=== PATIENT | female | born 1950 | race African-American/Black ===

== ENCOUNTER 2018-11-23 11:24 | Inpatient (IN) ==
[2018-11-23 12:05] LABS: Basophils # 0.1 10*3/uL (0.0-0.2); Basophils % 0.2 % (0.0-0.8); Hematocrit 30.2 VOL% (35.7-47.0); Hemoglobin 8.8 GM/DL (12.0-16.0); Immature Granulocytes % 1.1 %; Immature Granulocytes Absolute 0.23 #; Lymphocytes # 2.8 10*3/uL (1.4-4.0); Lymphocytes % 13.4 % (21.3-54.2); Mean Corpuscular HGB Conc 29.1 GM/DL (32-36); Mean Corpuscular Volume 85.1 FL (87-102); Mean Platelet Volume 10.6 FL (9.6-12.0); Monocytes % 2.7 % (1.7-12.7); NRBC # 0.02 10*3/uL; Neutrophils % 82.6 % (38.7-73.9); Platelet Count 261 T/CUMM (130-400); Red Blood Count 3.55 MC/CUMM (3.8-5.5); Red Cell Distribution Width 17.1 % (9.3-17.3); White Blood Count 21.2 T/CUMM (4-12)
[2018-11-23] MEDS ORDERED: PANTOPRAZOLE 40 MG VIAL IV STA (12:09)
[2018-11-23] MEDS ORDERED: SODIUM CHLORIDE 0.9% 1,000 ML IV STA ×2 (12:09→13:35)
[2018-11-23] MEDS ORDERED: ONDANSETRON 4 MG/2 ML VIAL IV STA (12:09)
[2018-11-23 12:22] LABS: Hypochromasia 1+; Lymphocytes 15 % (20-55); Nucleated Red Blood Cells 1 (0-5); Platelet Estimate Adequate; Segmented Neutrophils 84 % (50-85); Total Cells Counted 100
[2018-11-23 12:29] LABS: Alanine Aminotransferase 21 U/L (13-56); Albumin 3.4 G/DL (3.4-5.0); Alkaline Phosphatase 88 U/L (45-117); Aspartate Amino Transferase 31 U/L (0-37); Blood Urea Nitrogen 17 MG/DL (7-18); Calcium 8.7 MG/DL (8.5-10.1); Glucose 92 MG/DL (74-106); Osmolality,Calculated 280.4 MOS/KG (273-304); Total Protein 6.9 G/DL (6.4-8.3)
[2018-11-23] MEDS ORDERED: ETOMIDATE 20 MG/10 ML VIAL IV ONE ×2 (13:16→13:30)
[2018-11-23] MEDS ORDERED: ROCURONIUM 100 MG/10 ML VIAL IV ONE ×2 (13:17→13:31)
[2018-11-23] MEDS ORDERED: AMIODARONE 450 MG/9 ML VIAL IV ONE (13:22)
[2018-11-23] MEDS ORDERED: ENOXAPARIN 40 MG/0.4 ML SYRINGE SUBCUT SCH (13:30)
[2018-11-23] MEDS ORDERED: ONDANSETRON 4 MG/2 ML VIAL IV PRN (13:30)
[2018-11-23] MEDS ORDERED: PROMETHAZINE 25 MG/1 ML VIAL IM PRN (13:30)
[2018-11-23] MEDS ORDERED: ALBUTEROL 2.5 MG/3 ML NEB RESP TX PRN (13:30)
[2018-11-23] MEDS ORDERED: AMIODARONE INJ 450 MG in DEXTROSE 5% 241 ML IV SCH (13:32)
[2018-11-23 13:44] LABS: ABG Base Excess -17.7 MMOL/L (-2.5-2.5); ABG Oxygen Saturation 96.4 % (95-100); ABG PCO2 38.7 MM HG (35-48); ABG TCO2 11.2 MMOL/L (23-27)
[2018-11-23 13:46] LABS: ABG PH 7.076 (7.35-7.45)
[2018-11-23 14:50] LABS: INR 1.3; PT Patient Result 13.7 SECS (9.6-12.2)
[2018-11-23] MEDS ORDERED: NOREPINEPHRINE 8 MG in SODIUM CHLORIDE 0.9% 242 ML IV PRN (15:08)
[2018-11-23] MEDS ORDERED: NOREPINEPHRINE 4 MG/4 ML VIAL IV ONE ×2 (15:10→22:04)
[2018-11-23] MEDS: AMIODARONE INJ 450 MG in DEXTROSE 5% 241 ML IV SCH ×2 (15:30→20:00)
[2018-11-23] MEDS ORDERED: AMIODARONE INJ 150 MG in DEXTROSE 5% 100 ML IV ONE (15:30)
[2018-11-23 15:49] LABS: Apearance,Urine CLOUDY (Clear); Bacteria,Urine Many /HPF (Few); Bilirubin,Urine Negative (Negative); Blood, Urine Small mg/dL (Negative); Glucose,Urine (UA) 50 mg/dL (Negative); Granular Casts,Urine 5 /LPF (0-1); Ketones,Urine Negative (Negative); Mucus,Urine Occasional /LPF (Occasional); Nitrite,Urine Negative (Negative); Protein,Urine >=500 MG/DL; RBC,Urine 8 /HPF (0-4); Squamous Epithelial Cell,Urine Occasional /HPF (0-10); Transitional Epi Cells,Urine Occasional /HPF (<1); Urine Color Yellow (Yellow); Urine Specific Gravity 1.018 (1.001-1.035); WBC,Urine 27 /HPF (0-6)
[2018-11-23] MEDS ORDERED: MAGNESIUM SULF RIDER 4 GM in PREMIX 1 EACH IV PRN (15:59)
[2018-11-23] MEDS ORDERED: POTASSIUM CHLORIDE RIDER 10 MEQ in PREMIX 1 EACH IV PRN (15:59)
[2018-11-23] MEDS ORDERED: MAGNESIUM SULF RIDER 2 GM in PREMIX 1 EACH IV PRN (15:59)
[2018-11-23] MEDS ORDERED: ENOXAPARIN 80 MG/0.8 ML SYRINGE SUBCUT SCH (16:00)
[2018-11-23] MEDS ORDERED: LEVOFLOXACIN INJ 750 MG in PREMIX 1 EACH IV SCH (16:00)
[2018-11-23] MEDS ORDERED: SODIUM BICARBONATE 50 MEQ/50 ML VIAL IV ONE ×3 (16:02→23:19)
[2018-11-23] MEDS: PANTOPRAZOLE 40 MG VIAL IV SCH (16:02)
[2018-11-23] MEDS: LACTATED RINGERS 1,000 ML IV SCH (16:03)
[2018-11-23] MEDS ORDERED: HEPARIN/NACL 0.9% 2 UNITS/ML 500 ML IV ONE (16:31)
[2018-11-23] MEDS ORDERED: SODIUM CHLORIDE 0.9% 500 ML IV ONE (17:04)
[2018-11-23 17:06] LABS: Troponin I 4.85 NG/ML (0.00-0.045)
[2018-11-23] MEDS: PROPOFOL 1,000 MG/100 ML BOTTLE IV SCH (17:11)
[2018-11-23 17:36] LABS: CKMB % 8.1 %
[2018-11-23 17:40] LABS: Troponin I 1.36 NG/ML (0.00-0.045)
[2018-11-23 18:10] LABS: % Iron Saturation 4.7 % (18-50)
[2018-11-23 18:19] LABS: ABG Base Excess -5.3 MMOL/L (-2.5-2.5); ABG HCO3 20.1 MMOL/L (20-26); ABG Oxygen Saturation 99.5 % (95-100); ABG PH 7.375 (7.35-7.45); ABG TCO2 18.2 MMOL/L (23-27)
[2018-11-23] MEDS: HYDROCORTISONE 100 MG VIAL IV SCH (18:26)
[2018-11-23] MEDS: VANCOMYCIN INJ 1,000 MG in SODIUM CHLORIDE 0.9% 250 ML IV SCH (18:54)
[2018-11-23] MEDS: ALBUTEROL/IPRATROPIUM 3 ML NEB RESP TX SCH (19:16)
[2018-11-23 20:21] LABS: Troponin I 22.6 NG/ML (0.00-0.045)
[2018-11-23] MEDS ORDERED: ATORVASTATIN 80 MG TABLET PO SCH (21:00)
[2018-11-23] MEDS: FERROUS SULFATE 325 MG TABLET PO SCH (21:49)
[2018-11-23] MEDS: NOREPINEPHRINE 16 MG in SODIUM CHLORIDE 0.9% 234 ML IV PRN (21:49)
[2018-11-23] MEDS ORDERED: SODIUM CHLORIDE 0.9% 2,000 ML IV ONE (22:42)
[2018-11-23] MEDS ORDERED: DOBUTamine 500 MG/250 ML PREMIX IV PRN (22:42)
[2018-11-23 22:53] LABS: CKMB % 22.7 %
[2018-11-23 23:00] LABS: Troponin I 76.1 NG/ML (0.00-0.045)
[2018-11-23] MEDS ORDERED: SODIUM CHLORIDE 0.9% 1,000 ML IV SCH (23:00)
[2018-11-23 23:05] LABS: Red Cell Distribution Width 17.3 % (9.3-17.3)
[2018-11-23 23:09] LABS: ABG Base Excess -13.6 MMOL/L (-2.5-2.5); ABG HCO3 12.9 MMOL/L (20-26); ABG Oxygen Saturation 95.6 % (95-100); ABG PCO2 31.8 MM HG (35-48); ABG PH 7.225 (7.35-7.45); ABG PO2 100.9 MM HG (80-95); ABG TCO2 13.8 MMOL/L (23-27)
[2018-11-23 23:26] LABS: Basophils # 0.1 10*3/uL (0.0-0.2); Basophils % 0.3 % (0.0-0.8); Hemoglobin 7.3 GM/DL (12.0-16.0); Immature Granulocytes % 2.2 %; Immature Granulocytes Absolute 0.52 #; Lymphocytes # 2.2 10*3/uL (1.4-4.0); Lymphocytes % 9.2 % (21.3-54.2); Mean Corpuscular HGB Conc 27.4 GM/DL (32-36); Mean Corpuscular Volume 88.1 FL (87-102); Mean Platelet Volume 10.6 FL (9.6-12.0); Monocytes % 4.6 % (1.7-12.7); NRBC # 0.19 10*3/uL; Neutrophils % 83.7 % (38.7-73.9); Platelet Count 268 T/CUMM (130-400); Red Blood Count 3.02 MC/CUMM (3.8-5.5); White Blood Count 23.8 T/CUMM (4-12)
[2018-11-23 23:28] LABS: Hematocrit 26.6 VOL% (35.7-47.0)
[2018-11-23] MEDS: SODIUM BICARB INJ 100 MEQ in DEXTROSE 5% 1,000 ML IV SCH (23:30)
[2018-11-23] MEDS ORDERED: PHENYLEPHRINE DRIP 40 MG/250 ML PREMIX IV ONE (23:42)
[2018-11-23] MEDS ORDERED: PHENYLEPHRINE DRIP 40 MG/250 ML PREMIX IV PRN (23:45)
[2018-11-23] MEDS ORDERED: PHENYLEPHRINE INJ 160 MG in SODIUM CHLORIDE 0.9% 234 ML IV PRN (23:53)
[2018-11-24] MEDS ORDERED: MORPHINE 4 MG/1 ML VIAL ONE (00:12)
[2018-11-24] MEDS: MORPHINE 4 MG/1 ML VIAL IV PRN ×3 (00:30→20:54)
[2018-11-24 00:32] LABS: Lymphocytes 8 % (20-55); Metamyelocytes 1 %; Segmented Neutrophils 91 % (50-85); Total Cells Counted 100
[2018-11-24 00:33] LABS: Platelet Estimate Normal; Polychromasia Few; Smudge Cells Few
[2018-11-24 00:40] LABS: Albumin 1.9 G/DL (3.4-5.0); Bilirubin,Total 1.9 MG/DL (0.2-1.0); Calcium 6.4 MG/DL (8.5-10.1); Osmolality,Calculated 287.8 MOS/KG (273-304); Total Protein 4.7 G/DL (6.4-8.3)
[2018-11-24] MEDS ORDERED: DEXTROSE 10% 250 ML BAG IV PRN (00:43)
[2018-11-24 00:45] LABS: ABG Base Excess -10.8 MMOL/L (-2.5-2.5); ABG HCO3 15.7 MMOL/L (20-26); ABG Oxygen Saturation 98.3 % (95-100); ABG PCO2 34.9 MM HG (35-48); ABG PH 7.255 (7.35-7.45); ABG TCO2 14.8 MMOL/L (23-27)
[2018-11-24] MEDS ORDERED: CALCIUM CHLORIDE 1,000 MG/10 ML SYRINGE IV ONE ×2 (00:47→00:51)
[2018-11-24] MEDS ORDERED: ALBUMIN 25% 12.5 GM in PREMIX 1 EACH IV ONE (00:47)
[2018-11-24] MEDS: ALBUTEROL/IPRATROPIUM 3 ML NEB RESP TX SCH ×4 (00:48→19:52)
[2018-11-24] MEDS: HYDROCORTISONE 100 MG VIAL IV SCH ×3 (01:24→17:11)
[2018-11-24] MEDS: LACTATED RINGERS 1,000 ML IV SCH (01:26)
[2018-11-24 03:13] LABS: ABG HCO3 17.8 MMOL/L (20-26); ABG Oxygen Saturation 91.5 % (95-100); ABG PCO2 39.4 MM HG (35-48); ABG PH 7.275 (7.35-7.45); ABG PO2 71.2 MM HG (80-95)
[2018-11-24] MEDS: HEPARIN DRIP 25,000 UNITS/500 ML PREMIX IV SCH (03:15)
[2018-11-24] MEDS ORDERED: SODIUM BICARBONATE 50 MEQ/50 ML VIAL IV ONE (03:18)
[2018-11-24 03:21] LABS: Basophils # 0.1 10*3/uL (0.0-0.2); Basophils % 0.3 % (0.0-0.8); Hematocrit 31.5 VOL% (35.7-47.0); Hemoglobin 9.3 GM/DL (12.0-16.0); Immature Granulocytes % 1.7 %; Immature Granulocytes Absolute 0.41 #; Mean Corpuscular HGB Conc 29.5 GM/DL (32-36); Mean Platelet Volume 10.8 FL (9.6-12.0); Monocytes % 2.4 % (1.7-12.7); NRBC # 0.15 10*3/uL; Neutrophils % 91.6 % (38.7-73.9); Platelet Count 214 T/CUMM (130-400); Red Blood Count 3.58 MC/CUMM (3.8-5.5); White Blood Count 24.1 T/CUMM (4-12)
[2018-11-24 04:08] LABS: Albumin 2.2 G/DL (3.4-5.0); Bilirubin,Total 2.3 MG/DL (0.2-1.0); CKMB % 21.6 %; Calcium 7.1 MG/DL (8.5-10.1); Osmolality,Calculated 291.4 MOS/KG (273-304); Risk Ratio 2.19; VLDL CHOLESTEROL 10.4 MG/DL
[2018-11-24] MEDS: NOREPINEPHRINE 16 MG in SODIUM CHLORIDE 0.9% 234 ML IV PRN ×2 (04:16→12:00)
[2018-11-24 04:28] LABS: Band Neutrophils 2 % (0-10); Lymphocytes 2 % (20-55); Nucleated Red Blood Cells 1 (0-5); Segmented Neutrophils 95 % (50-85); Total Cells Counted 100
[2018-11-24 04:29] LABS: Platelet Estimate Normal; Polychromasia Few; Smudge Cells Few
[2018-11-24] MEDS: SODIUM BICARB INJ 100 MEQ in DEXTROSE 5% 1,000 ML IV SCH ×4 (04:36→16:49)
[2018-11-24 06:07] LABS: ABG Base Excess -5.5 MMOL/L (-2.5-2.5); ABG Oxygen Saturation 91.4 % (95-100); ABG PCO2 39.1 MM HG (35-48); ABG PH 7.327 (7.35-7.45); ABG PO2 71.1 MM HG (80-95); ABG TCO2 21.2 MMOL/L (23-27)
[2018-11-24] MEDS: VANCOMYCIN INJ 1,000 MG in SODIUM CHLORIDE 0.9% 250 ML IV SCH (06:33)
[2018-11-24] MEDS ORDERED: DEXMEDETOMIDINE 200 MCG in SODIUM CHLORIDE 0.9% 48 ML IV PRN (06:44)
[2018-11-24] MEDS ORDERED: POTASSIUM CHLORIDE RIDER 10 MEQ in PREMIX 1 EACH IV PRN (08:01)
[2018-11-24] MEDS ORDERED: MAGNESIUM SULF RIDER 2 GM in PREMIX 1 EACH IV PRN (08:01)
[2018-11-24] MEDS ORDERED: HEPARIN/NACL 0.9% 2 UNITS/ML 1,000 ML IV ONE (08:04)
[2018-11-24] MEDS ORDERED: LIDOCAINE 1% 20 ML VIAL ONE (08:04)
[2018-11-24] MEDS ORDERED: HEPARIN/NACL 0.9% 2 UNITS/ML 500 ML IV ONE ×4 (08:29→12:05)
[2018-11-24] MEDS ORDERED: MIDAZOLAM 2 MG/2 ML VIAL ONE ×2 (08:43→11:09)
[2018-11-24] MEDS ORDERED: fentaNYL 100 MCG/2 ML VIAL ONE (08:43)
[2018-11-24] MEDS ORDERED: DOBUTamine 500 MG/250 ML PREMIX IV ONE (09:31)
[2018-11-24] MEDS ORDERED: HEPARIN 5,000 UNIT/1 ML VIAL ONE (09:36)
[2018-11-24] MEDS ORDERED: ceFAZolin 1,000 MG VIAL ONE (09:55)
[2018-11-24] MEDS ORDERED: NITROGLYCERIN DRIP 50 MG/250 ML BOTTLE IV ONE (10:21)
[2018-11-24] MEDS ORDERED: NOREPINEPHRINE 4 MG/4 ML VIAL IV ONE ×3 (10:34→10:36)
[2018-11-24] MEDS ORDERED: TICAGRELOR 90 MG TABLET ONE (11:12)
[2018-11-24] MEDS ORDERED: TICAGRELOR 90 MG TABLET PO ONE (12:12)
[2018-11-24] MEDS: DOBUTamine 500 MG/250 ML PREMIX IV SCH (13:08)
[2018-11-24] MEDS: AMIODARONE INJ 450 MG in DEXTROSE 5% 241 ML IV SCH (13:18)
[2018-11-24 13:21] LABS: PT Patient Result 22.1 SECS (9.6-12.2); Partial Thromboplastin Time 47.6 SECS (20.8-36.0)
[2018-11-24] MEDS: PROPOFOL 1,000 MG/100 ML BOTTLE IV SCH (14:07)
[2018-11-24] MEDS: PANTOPRAZOLE 40 MG VIAL IV SCH (14:55)
[2018-11-24] MEDS: ASPIRIN CHEW 81 MG TABLET PO SCH (14:55)
[2018-11-24] MEDS: FOLIC ACID 1 MG TABLET PO SCH (14:55)
[2018-11-24] MEDS: FERROUS SULFATE 325 MG TABLET PO SCH ×2 (14:55→20:54)
[2018-11-24 18:15] LABS: INR 1.9; PT Patient Result 20.7 SECS (9.6-12.2)
[2018-11-24 18:16] LABS: Partial Thromboplastin Time 49.2 SECS (20.8-36.0)
[2018-11-24 20:35] LABS: Calcium 6.4 MG/DL (8.5-10.1); Osmolality,Calculated 290.5 MOS/KG (273-304)
[2018-11-24] MEDS: TICAGRELOR 90 MG TABLET PO SCH (20:54)
[2018-11-25] MEDS: ALBUTEROL/IPRATROPIUM 3 ML NEB RESP TX SCH ×4 (01:03→19:34)
[2018-11-25] MEDS: MORPHINE 4 MG/1 ML VIAL IV PRN ×2 (02:06→10:33)
[2018-11-25] MEDS: HYDROCORTISONE 100 MG VIAL IV SCH ×3 (02:12→18:07)
[2018-11-25 03:41] LABS: ABG Base Excess 3.4 MMOL/L (-2.5-2.5); ABG HCO3 27.5 MMOL/L (20-26); ABG Oxygen Saturation 99.5 % (95-100); ABG PCO2 38.1 MM HG (35-48); ABG PH 7.463 (7.35-7.45); ABG TCO2 25.5 MMOL/L (23-27)
[2018-11-25 04:16] LABS: Blood Urea Nitrogen 38 MG/DL (7-18); Calcium 6.3 MG/DL (8.5-10.1); Glucose 145 MG/DL (74-106); Osmolality,Calculated 288.5 MOS/KG (273-304)
[2018-11-25 04:23] LABS: Basophils % 0.1 % (0.0-0.8); Immature Granulocytes % 0.9 %; Immature Granulocytes Absolute 0.16 #; Lymphocytes # 0.6 10*3/uL (1.4-4.0); Lymphocytes % 3.6 % (21.3-54.2); Mean Corpuscular HGB Conc 32.6 GM/DL (32-36); Mean Corpuscular Volume 84.1 FL (87-102); Mean Platelet Volume 11.2 FL (9.6-12.0); Monocytes % 1.6 % (1.7-12.7); NRBC # 0.11 10*3/uL; Neutrophils % 93.8 % (38.7-73.9); Platelet Count 135 T/CUMM (130-400)
[2018-11-25 04:24] LABS: Hematocrit 23.3 VOL% (35.7-47.0); Hemoglobin 7.6 GM/DL (12.0-16.0); Red Blood Count 2.77 MC/CUMM (3.8-5.5)
[2018-11-25 04:25] LABS: Troponin I > 200.000 NG/ML (0.00-0.045)
[2018-11-25 04:45] LABS: Band Neutrophils 1 % (0-10); Lymphocytes 1 % (20-55); Platelet Estimate Adequate; Polychromasia Few; Segmented Neutrophils 97 % (50-85); Total Cells Counted 100
[2018-11-25] MEDS: DOBUTamine 500 MG/250 ML PREMIX IV SCH ×2 (07:58→10:22)
[2018-11-25] MEDS: HEPARIN DRIP 25,000 UNITS/500 ML PREMIX IV SCH (09:24)
[2018-11-25] MEDS: FOLIC ACID 1 MG TABLET PO SCH (09:27)
[2018-11-25] MEDS: FERROUS SULFATE 325 MG TABLET PO SCH ×2 (09:27→20:30)
[2018-11-25] MEDS: PANTOPRAZOLE 40 MG VIAL IV SCH (09:27)
[2018-11-25] MEDS: TICAGRELOR 90 MG TABLET PO SCH ×2 (09:27→20:30)
[2018-11-25] MEDS: ASPIRIN CHEW 81 MG TABLET PO SCH (09:27)
[2018-11-25 10:11] LABS: Hematocrit 27.7 VOL% (35.7-47.0); Hemoglobin 8.9 GM/DL (12.0-16.0)
[2018-11-25] MEDS ORDERED: NOREPINEPHRINE 16 MG in SODIUM CHLORIDE 0.9% 234 ML IV PRN (11:00)
[2018-11-25 11:25] LABS: Hepatitis B Core IgM Quant 0.57 Index; Hepatitis B Surface Ag Quant < 0.10 Index; Hepatitis B Surface Ag Result Negative (Negative); Hepatitis C Virus Ab Quant < 0.02 Index; Hepatitis C Virus Ab Result Negative (Negative)
[2018-11-25 12:15] LABS: INR 1.6; Partial Thromboplastin Time 54.4 SECS (20.8-36.0)
[2018-11-25] MEDS: PROPOFOL 1,000 MG/100 ML BOTTLE IV SCH (13:52)
[2018-11-25] MEDS ORDERED: ALBUMIN 25% 25 GM in PREMIX 1 EACH IV ONE ×2 (13:56→15:30)
[2018-11-25] MEDS ORDERED: HEPARIN 10,000 UNIT/10 ML VIAL IV SCH (15:30)
[2018-11-25] MEDS ORDERED: LEVOFLOXACIN INJ 750 MG in PREMIX 1 EACH IV SCH (16:00)
[2018-11-25] MEDS: SODIUM BICARB INJ 100 MEQ in DEXTROSE 5% 1,000 ML IV SCH (18:08)
[2018-11-25 19:09] LABS: INR 1.5; PT Patient Result 16.4 SECS (9.6-12.2)
[2018-11-25 19:10] LABS: Partial Thromboplastin Time 76.2 SECS (20.8-36.0)
[2018-11-26] MEDS: ALBUTEROL/IPRATROPIUM 3 ML NEB RESP TX SCH ×4 (00:21→19:27)
[2018-11-26] MEDS: HYDROCORTISONE 100 MG VIAL IV SCH ×3 (01:51→17:28)
[2018-11-26] MEDS: DOBUTamine 500 MG/250 ML PREMIX IV SCH ×2 (04:10→07:16)
[2018-11-26 04:11] LABS: ABG Base Excess 3.2 MMOL/L (-2.5-2.5); ABG HCO3 27.3 MMOL/L (20-26); ABG PH 7.498 (7.35-7.45); ABG PO2 85.3 MM HG (80-95); ABG TCO2 24.6 MMOL/L (23-27)
[2018-11-26 04:13] LABS: Basophils % 0.1 % (0.0-0.8); Hematocrit 22.9 VOL% (35.7-47.0); Hemoglobin 7.4 GM/DL (12.0-16.0); Immature Granulocytes % 1.8 %; Immature Granulocytes Absolute 0.29 #; Lymphocytes # 0.6 10*3/uL (1.4-4.0); Lymphocytes % 3.9 % (21.3-54.2); Mean Corpuscular HGB Conc 32.3 GM/DL (32-36); Mean Corpuscular Volume 83.6 FL (87-102); Monocytes % 3.7 % (1.7-12.7); NRBC # 0.17 10*3/uL; Neutrophils % 90.5 % (38.7-73.9); Red Blood Count 2.74 MC/CUMM (3.8-5.5); Red Cell Distribution Width 17.4 % (9.3-17.3)
[2018-11-26 04:15] LABS: Platelet Count 87 T/CUMM (130-400)
[2018-11-26 04:24] LABS: Calcium 6.9 MG/DL (8.5-10.1); Osmolality,Calculated 280.8 MOS/KG (273-304)
[2018-11-26] MEDS ORDERED: VANCOMYCIN INJ 1,000 MG in SODIUM CHLORIDE 0.9% 250 ML IV PRN (06:00)
[2018-11-26 06:19] LABS: Band Neutrophils 4 % (0-10); Lymphocytes 7 % (20-55); Nucleated Red Blood Cells 4 (0-5); Platelet Estimate Decreased; Segmented Neutrophils 89 % (50-85); Total Cells Counted 100
[2018-11-26 06:21] LABS: Anisocytosis 1+; Smudge Cells Few
[2018-11-26] MEDS: HEPARIN DRIP 25,000 UNITS/500 ML PREMIX IV SCH (08:12)
[2018-11-26] MEDS: FOLIC ACID 1 MG TABLET PO SCH (08:38)
[2018-11-26] MEDS: ASPIRIN CHEW 81 MG TABLET PO SCH (08:38)
[2018-11-26] MEDS: TICAGRELOR 90 MG TABLET PO SCH (08:38)
[2018-11-26] MEDS: PANTOPRAZOLE 40 MG VIAL IV SCH (08:39)
[2018-11-26] MEDS: FERROUS SULFATE 325 MG TABLET PO SCH (08:39)
[2018-11-26] MEDS ORDERED: AMIODARONE 200 MG TABLET PO SCH (09:00)
[2018-11-26 09:09] LABS: Alanine Aminotransferase 3177 U/L (13-56); Albumin 2.6 G/DL (3.4-5.0); Alkaline Phosphatase 172 U/L (45-117); Aspartate Amino Transferase 7847 U/L (0-37); Bilirubin,Indirect 2.7 MG/DL (0.0-1.0); Haptoglobin < 8.0 MG/DL (30-200); Total Protein 4.7 G/DL (6.4-8.3)
[2018-11-26] MEDS: BIVALIRUDIN 250 MG in SODIUM CHLORIDE 0.9% 50 ML IV SCH ×3 (09:46→17:57)
[2018-11-26] MEDS ORDERED: HEPARIN/NACL 0.9% 2 UNITS/ML 500 ML IV ONE ×2 (12:03→12:05)
[2018-11-26] MEDS: PROPOFOL 1,000 MG/100 ML BOTTLE IV SCH (13:37)
[2018-11-26 13:53] LABS: Basophils % 0.2 % (0.0-0.8); Hematocrit 22.2 VOL% (35.7-47.0); Hemoglobin 7.3 GM/DL (12.0-16.0); Immature Granulocytes Absolute 0.31 #; Lymphocytes # 0.9 10*3/uL (1.4-4.0); Lymphocytes % 5.5 % (21.3-54.2); Mean Corpuscular HGB Conc 32.9 GM/DL (32-36); Mean Corpuscular Volume 81.3 FL (87-102); Mean Platelet Volume 11.1 FL (9.6-12.0); Monocytes % 2.8 % (1.7-12.7); NRBC # 0.17 10*3/uL; Neutrophils % 89.5 % (38.7-73.9); Red Blood Count 2.73 MC/CUMM (3.8-5.5); Red Cell Distribution Width 17.5 % (9.3-17.3); White Blood Count 15.6 T/CUMM (4-12)
[2018-11-26 13:55] LABS: Platelet Count 80 T/CUMM (130-400)
[2018-11-26 14:10] LABS: Anisocytosis 1+; Hypochromasia 1+; Platelet Estimate Decreased; Polychromasia Few
[2018-11-26 14:11] LABS: Schistocytes Few
[2018-11-26] MEDS: SODIUM BICARB INJ 100 MEQ in DEXTROSE 5% 1,000 ML IV SCH (17:28)
[2018-11-26 18:45] VITALS: BP 111/65
[2018-11-28 19:51] LABS: HIT Interpretation Negative (Negative)
== END 2018-11-26 20:24 | disposition hospice, home (50) | DRG 215 ==
LOC: N.ED 11:24 → SUATTDRO 13:30 → N.EDINP 13:30 → N.ICU 15:14
PROVIDERS: ADMIT Family Medicine; ATTEND Internal Medicine